=== PATIENT | male | born 1950 ===

== ENCOUNTER 2024-03-10 02:32 | Day surgery (SDC) | payer MEDICARE, OTHER ==
[2024-03-10] MEDS ORDERED: Lidocaine HCl 4% Cream 5 GM ONE (12:25)
== END 2024-03-10 23:17 | disposition home or self-care (01) ==
LOC: WOUND 02:32
DX: T81.31XA Disruption of external operation (surgical) wound, not elsewhere classified, initial encounter (principal); I73.9 Peripheral vascular disease, unspecified; I87.2 Venous insufficiency (chronic) (peripheral); Y83.8 Other surgical procedures as the cause of abnormal reaction of the patient, or of later complication, without mention of misadventure at the time of the procedure
CPT/HCPCS: A6213; A9270

== ENCOUNTER 2024-03-17 01:37 | Day surgery (SDC) | payer MEDICARE, OTHER ==
[2024-03-17] MEDS ORDERED: Lidocaine HCl 4% Cream 5 GM ONE (10:57)
== END 2024-03-17 22:43 | disposition home or self-care (01) ==
LOC: WOUND 01:37
DX: T81.31XD Disruption of external operation (surgical) wound, not elsewhere classified, subsequent encounter (principal); I73.9 Peripheral vascular disease, unspecified; I87.2 Venous insufficiency (chronic) (peripheral)
CPT/HCPCS: A6213; A9270; G0463

== ENCOUNTER 2024-04-03 06:46 | Day surgery (SDC) | payer MEDICARE, OTHER | END 2024-04-04 00:02 | disposition home or self-care (01) | LOC: WOUND 06:46 | DX: T81.31XA Disruption of external operation (surgical) wound, not elsewhere classified, initial encounter (principal); I73.9 Peripheral vascular disease, unspecified; I87.2 Venous insufficiency (chronic) (peripheral); Y83.8 Other surgical procedures as the cause of abnormal reaction of the patient, or of later complication, without mention of misadventure at the time of the procedure | CPT/HCPCS: A6213 ==

== ENCOUNTER 2024-06-02 01:38 | Day surgery (SDC) | payer MEDICARE, OTHER | END 2024-06-02 22:56 | disposition home or self-care (01) | LOC: WOUND 01:38 | DX: T81.31XD Disruption of external operation (surgical) wound, not elsewhere classified, subsequent encounter (principal); L97.212 Non-pressure chronic ulcer of right calf with fat layer exposed; I87.2 Venous insufficiency (chronic) (peripheral); I73.9 Peripheral vascular disease, unspecified; Y83.8 Other surgical procedures as the cause of abnormal reaction of the patient, or of later complication, without mention of misadventure at the time of the procedure | CPT/HCPCS: A6213; G0463 ==

== ENCOUNTER 2024-06-26 03:04 | Day surgery (SDC) | payer MEDICARE, OTHER | END 2024-06-26 23:00 | disposition home or self-care (01) | LOC: WOUND 03:04 | DX: T81.31XD Disruption of external operation (surgical) wound, not elsewhere classified, subsequent encounter (principal); I73.9 Peripheral vascular disease, unspecified | CPT/HCPCS: G0463 ==